=== PATIENT | male | born 1995 | race Hispanic/Latino ===

== ENCOUNTER 2022-03-08 22:17 | Emergency (ER) | payer OTHER ==
[~2022-03-08] VITALS: Ht 269.2 cm; Wt 97.1 kg
[2022-03-08 22:36] VITALS: BP 135/81
[2022-03-08] MEDS ORDERED: HYDROCODONE/ACETAMINOPHEN 10/325 MG TAB PO ONE (23:00)
[2022-03-08] MEDS ORDERED: TETANUS/DIPHTHERIA TOXOID [ADULT] 0.5 ML VIAL IM ONE (23:00)
[2022-03-08] MEDS ORDERED: CYCLOBENZAPRINE HCL 10 MG TABLET PO ONE (23:00)
[2022-03-08] MEDS ORDERED: CEPHALEXIN 500 MG CAPSULE PO ONE (23:00)
[2022-03-08] MEDS ORDERED: NAPR-1180 PO (23:05)
[2022-03-08] MEDS ORDERED: TRAM1TAB2 PO (23:05)
[2022-03-08] MEDS ORDERED: CEPH500B PO (23:05)
[2022-03-08] MEDS ORDERED: BACITRACIN 1 EACH PACKET TP ONE ×2 (23:09→23:30)
== END 2022-03-08 23:28 | disposition home or self-care (01) ==
LOC: EDH 22:17
DX: S40.012A Contusion of left shoulder, initial encounter (principal); S50.02XA Contusion of left elbow, initial encounter; S80.211A Abrasion, right knee, initial encounter; S80.212A Abrasion, left knee, initial encounter; V19.88XA Pedal cyclist (driver) (passenger) injured in other specified transport accidents, initial encounter; Y93.I9 Activity, other involving external motion; Y92.89 Other specified places as the place of occurrence of the external cause; Y99.8 Other external cause status
CPT/HCPCS: 73030; 73080; 90471; 90714